=== PATIENT | male | born 2000 | race Caucasian/White ===

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

== ENCOUNTER → 2020-10-14 | Outpatient (CLI) | payer BC ==
--- NOTE | 2020-10-14 10:28 | Diagnostic Imaging Report ---
INDICATION: History of hamate fracture. COMPARISON: None FINDINGS: Carpal tunnel and lateral views of the left wrist were obtained. There is curvilinear lucency at the base of the hamate consistent with fracture. Acuity is indeterminate, but there is no appreciable surrounding callus formation to suggest significant healing. Joint spaces are maintained on the views provided. No unexpected radiopaque foreign bodies are seen. IMPRESSION: 1. Fracture at the base of the hamate as described above. Dictated by: Dictated on workstation # [id number]
== END ==
LOC: RAD FS 10:02
PROVIDERS: ATTEND Nurse Practitioner
DX: S62.145D Nondisplaced fracture of body of hamate [unciform] bone, left wrist, subsequent encounter for fracture with routine healing (principal); X58.XXXD Exposure to other specified factors, subsequent encounter
CPT/HCPCS: 73100

== ENCOUNTER → 2020-10-16 | Outpatient (CLI) | payer BC ==
--- NOTE | 2020-10-16 16:31 | Diagnostic Imaging Report ---
PROCEDURE: CT left upper extremity without contrast. TECHNIQUE: Multiple contiguous axial images were obtained through the left upper extremity without the use of intravenous contrast. Auto Exposure Controls were utilized during the CT exam to meet ALARA standards for radiation dose reduction. INDICATION: Hand pain after injury obtained playing baseball. COMPARISON: None available. FINDINGS: There is a simple fracture through the base of the hook of the hamate that has diastases of less than 2 mm. There is no angulation of the hook of hamate. No additional fracture. No osteonecrosis of lunate. Joint spaces are well-preserved. Borderline widening of the scapholunate interval. IMPRESSION: 1. CT confirms the presence of a nondisplaced fracture at the base of hook of hamate. 2. Borderline widening of scapholunate interval is likely physiologic. However, patient has radial sided wrist pain, consider MR arthrogram to evaluate the scapholunate ligament integrity. Dictated by: Dictated on workstation # [id number]
== END ==
LOC: RAD 15:15
PROVIDERS: ATTEND Nurse Practitioner
DX: S62.145A Nondisplaced fracture of body of hamate [unciform] bone, left wrist, initial encounter for closed fracture (principal); Y93.64 Activity, baseball
CPT/HCPCS: 73200

== ENCOUNTER → 2021-10-29 | Outpatient (CLI) | payer BC, OTHER ==
--- NOTE | 2021-10-29 11:31 | Diagnostic Imaging Report ---
INDICATION: Right hand pain. FINDINGS: 3 views. No fractures or dislocations. Articulating surfaces are smooth. Joint spaces are well-maintained. There are small simple appearing cyst in the head of the 3rd metacarpal with sclerotic margin. IMPRESSION: No acute abnormalities demonstrated. Dictated by: Dictated on workstation # [id number]
== END ==
LOC: RAD FS 10:15
PROVIDERS: ATTEND Nurse Practitioner
DX: M79.641 Pain in right hand (principal)
CPT/HCPCS: 73130